=== PATIENT | female | born 1970 | race Caucasian/White ===

== ENCOUNTER 2022-09-22 22:10 | Emergency (ER) | payer OTHER ==
[~2022-09-22] VITALS: Ht 160 cm; Wt 68.0 kg
[2022-09-22] MEDS ORDERED: CYMBALTA60 MG PO (22:21)
[2022-09-22 22:46] LABS: BASO # 0.1 10*3/uL (0.0-0.1); BASO % 0.6 % (0.0-1.0); EOS # 0.1 10*3/uL (0.0-0.4); EOS % 1.3 % (1.0-4.0); HEMATOCRIT 40.3 % (37.0-47.0); LYMPH # 3.6 10*3/uL (1.3-4.4); MEAN CELL VOLUME 88.4 fl (81.0-99.0); MEAN CORPUSCULAR HGB 30.5 pg (27.0-31.0); MEAN CORPUSCULAR HGB CONC 34.5 g/dl (33.0-37.0); MEAN PLATELET VOLUME 9.6 fl (9.6-12.3); MONO # 0.6 10*3/uL (0.1-1.0); MONO % 6.4 % (3.0-9.0); NEUT # 5.2 10*3/uL (2.3-7.9); NEUT % 54.2 % (47.0-73.0); PLATELET COUNT AUTOMATED 357 10*3/uL (130-400); RED BLOOD COUNT 4.56 10*6/uL (4.10-5.10); RED CELL DISTRI WIDTH 12.9 % (0-14.5); WHITE BLOOD COUNT 9.6 10*3/uL (4.8-10.8)
[2022-09-22 23:06] LABS: ALKALINE PHOSPHATASE 106 U/L (46-116); BUN 13 mg/dl (9-23); CHLORIDE 102 mmol/L (98-107); ETHYL ALCOHOL 206.1 mg/dl (<3); LIPASE 30 U/L (12-53); POTASSIUM 3.2 mmol/L (3.4-5.1); SGPT/ALT 90 U/L (10-49); TOTAL PROTEIN 7.5 gm/dL (6.0-8.0)
== END 2022-09-23 05:48 | disposition home or self-care (01) ==
LOC: ED 22:10 → EDBD 22:36 → ED 22:36
PROVIDERS: Internal Medicine
DX: F10.920 Alcohol use, unspecified with intoxication, uncomplicated (principal); E87.6 Hypokalemia; R79.89 Other specified abnormal findings of blood chemistry; R11.2 Nausea with vomiting, unspecified; Z79.899 Other long term (current) drug therapy; Y90.7 Blood alcohol level of 200-239 mg/100 ml